=== PATIENT | male | born 1935 | race Caucasian/White ===

== ENCOUNTER → 2016-08-25 | Outpatient (CLI) | payer MEDICARE, BC | LOC: MW.CHPS 08:00 | PROVIDERS: ATTEND Plastic Surgery | DX: L57.0 Actinic keratosis (principal); L82.0 Inflamed seborrheic keratosis | CPT/HCPCS: 17000; 17003; 17110; 99202 ==

== ENCOUNTER → 2016-09-23 | Outpatient (CLI) | payer MEDICARE, BC | LOC: MW.CHIM 08:00 | PROVIDERS: ATTEND Internal Medicine | DX: I48.91 Unspecified atrial fibrillation (principal); I10 Essential (primary) hypertension; I49.3 Ventricular premature depolarization; F41.9 Anxiety disorder, unspecified | CPT/HCPCS: 99214 ==

== ENCOUNTER → 2016-10-06 | Outpatient (CLI) | payer MEDICARE, BC ==
[2016-10-06 12:04] LABS: CHLORIDE,CL 91 mmol/L (98-110); SODIUM,NA 132 mmol/L (136-146)
== END ==
LOC: MW.CHIM 11:21
PROVIDERS: ATTEND Internal Medicine
DX: I10 Essential (primary) hypertension (principal); I48.91 Unspecified atrial fibrillation; I25.10 Atherosclerotic heart disease of native coronary artery without angina pectoris; E03.9 Hypothyroidism, unspecified; E78.5 Hyperlipidemia, unspecified
CPT/HCPCS: 36415; 80053; 80061; 84439; 84443; 85025

== ENCOUNTER → 2016-10-07 | Outpatient (CLI) | payer MEDICARE, BC | LOC: MW.CHIM 08:00 | PROVIDERS: ATTEND Internal Medicine | DX: R07.9 Chest pain, unspecified (principal); I10 Essential (primary) hypertension; E78.5 Hyperlipidemia, unspecified; I49.3 Ventricular premature depolarization; J44.9 Chronic obstructive pulmonary disease, unspecified; F41.9 Anxiety disorder, unspecified; F32.9 Major depressive disorder, single episode, unspecified | CPT/HCPCS: 99214 ==

== ENCOUNTER → 2016-10-26 | Outpatient (CLI) | payer MEDICARE, BC | LOC: MW.CHPS 08:00 | PROVIDERS: ATTEND Plastic Surgery | DX: L57.0 Actinic keratosis (principal) | CPT/HCPCS: G0463 ==

== ENCOUNTER 2017-02-02 12:28 | Observation (INO) | payer MEDICARE, BC ==
[2017-02-02] MEDS ORDERED: Sodium Chloride 0.9% 2.5 ML Syringe FLUSH PRN ×2 (12:33→17:25)
[2017-02-02] MEDS ORDERED: Aspirin 81 MG Tab.Chew PO ONE (12:33)
[2017-02-02] MEDS ORDERED: Sodium Chloride 0.9% 10 ML Syringe FLUSH PRN ×2 (12:33→17:25)
[2017-02-02] MEDS ORDERED: Alum Hydrox/Mag Hydrox/Simeth 15 ML, Metoclopramide 5 MG, Lidocaine 2% 5 ML PO ONE ×3 (12:33)
[2017-02-02] MEDS ORDERED: Famotidine 20 MG/2 ML SDV IVPUSH ONE (12:33)
[2017-02-02] MEDS ORDERED: Sodium Chloride 0.9% 1,000 ML IV ONE ×2 (12:33→15:36)
--- NOTE | 2017-02-02 12:57 | EDM.PDOC ---
ED HPI GENERAL MEDICAL PROBLEM - General Chief Complaint: Chest Pain Time Seen by Provider: 02/02/17 12:47 Source of Information: Reports: Patient History Limitations: Reports: No Limitations - History of Present Illness INITIAL COMMENTS - FREE TEXT/NARRATIVE: HISTORY AND PHYSICAL: []Patient presents to the emergency room today by EMS with family members. Patient reports he has had midsternal chest pain that radiates across the chest up into his neck and into his head. History of Present Illness: [Patient complains of midsternal chest pain that radiates across the chest into his neck and head for the past 2 days. Patient has vague complaints of dizziness , headache, near syncopal events, and frequent falls at home. Patient also reports having nausea and shortness of breath. Both the and daughter are at the bedside stating that he has not been feeling well for the last couple weeks. Patient has a history of past [place] [address] 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 States he was last seen a month ago by Dr. Saldaña and was given a new blood pressure medication due to unmanaged blood pressure. He reports he did have an angiogram done in [place] in October of this year which was normal, which the daughter states "we were surprised due to having major arteries blocked."] During the interview process, patient is frequently closes his eyes and has labored breathing/pursed lip breathing. Patient reports that this helps calm him down. History of atrial fibrillation, RI, lung cancer with lobectomy to the left upper lobe. Past history of smoking, has not smoked in over 40 years. Review of Systems: As per history of present illness and below otherwise all systems reviewed and negative. Past medical history: As per history of present illness and as reviewed below otherwise noncontributory. Surgical history: As per history of present illness and as reviewed below otherwise noncontributory. Social history: No reported history of drug or alcohol abuse. Family history: As per history of present illness and as reviewed below otherwise noncontributory. Physical exam: 81-year-old male nontoxic appearing. Able to speak in full sentences, labored breathing. Answers questions appropriately. HEENT: Atraumatic, normocehpalic, pupils reactive, negative for conjunctival pallor or scleral icterus, mucous membranes moist, throat clear, neck supple, nontender, trachea midline. Lungs: Very diminished to auscultation, unable to auscultate breath sounds to left upper lobe, chest non tender. Heart: Tachycardic, irregular, negative for clicks, rubs, or JVD. EKG shows sinus tachycardia with a regular rate of 116 to 130s with left ventricular hypertrophy. Abdomen: Soft, nondistended, nontender. Negative for masses or hepatossplenmegaly. Negative for costovertebral tenderness. Pelvis: Stable nontender. Genitourinary: Deferred. Rectal: Deferred Extremities: Atraumatic, negative for cords or calf pain. No peripheral edema noted bilaterally Neurovascular unremarkable. Neuro: Awake, alert, oriented. Cranial nerves II through XII unremarkable. Cerebellum unremarkable. Motor and sensory unremarkable throughout. Exam nonfocal. Discussed case with Dr. Pollock who is agreeable for observation on telemetry Diagnostics: [CBC, CMP, troponin, lipase, d-dimer, UA, 1 view chest x-ray, head CT, amylase, EKG] Therapeutics: 324mg chewable aspirin Famotidine IV GI cocktail po ativan IV nitro sublingual oxygen therapy Impression: [#1 confusion #2 tachycardia #3 hypertension] Plan: [Observation Telemetry] Definitive disposition and diagnosis as appropriate pending reevaluation and review of above. Onset: Sudden Duration: Day(s): (2) Location: Reports: Head, Neck, Chest Associated Symptoms: Reports: Confusion, Chest Pain, Headaches, Nausea/Vomiting , Shortness of Breath Middle Chest Pain Score (Numeric/FACES): 4 - Related Data Allergies Allergy/AdvReac Type Severity Reaction Status Date / Time No Known Allergies Allergy Verified 02/13/14 07:57 Home Meds: Home Meds Albuterol [Ventolin HFA] 1 - 2 puff INH ASDIRECTED PRN 07/27/16 [History] Aspirin [Bland Aspirin] 81 mg PO DAILY 07/27/16 [History] Levothyroxine [Synthroid] 50 mcg PO DAILY 07/27/16 [History] Losartan/Hydrochlorothiazide [Losartan-HCTZ 50-12.5 MG] 1 tab PO DAILY 07/27/16 [History] Metoprolol Succinate [Toprol XL] 25 mg PO DAILY 07/27/16 [History] Multivitamin [Multivitamins] 1 tab PO DAILY 07/27/16 [History] Sodium Chloride 0.65% [Smith Nasal Mazama] 1 - 2 spray NASBOTH ASDIRECTED PRN 12/05 [History] Tretinoin/Emollient Base [Tretinoin 0.05% Emollient Crm] 1 applic TOP BEDTIME [History] traZODone HCl [Trazodone HCl] 25 mg PO BEDTIME 07/27/16 [History] Past Medical History Cardiovascular History: Reports: Afib, CAD, High Cholesterol, Hypertension Other Cardiovascular History: recent cardiac consultation in [place]. and pt. agreed there have been no changes Respiratory History: Reports: Asthma, Other (See Below) Other Respiratory History: seasonal asthma Gastrointestinal History: Reports: Other (See Below) Other Gastrointestinal History: occasional heartburn, hx colon cancer Musculoskeletal History: Reports: Arthritis, Fracture Psychiatric History: Reports: Depression Endocrine/Metabolic History: Reports: Hypothyroidism Hematologic History: Reports: Other (See Below) Other Hematologic History: nose bleeds in the past Oncologic (Cancer) History: Reports: Basal Cell Carcinoma, Colon, Lung, Squamous Cell Carcinoma - Past Surgical History HEENT Surgical History: Reports: Cataract Surgery Cardiovascular Surgical History: Reports: Other (See Below) GI Surgical History: Reports: Colonoscopy, Other (See Below) Musculoskeletal Surgical History: Reports: Other (See Below) Dermatological Surgical History: Reports: Skin Biopsy Social & Family History - Family History Family Medical History: Noncontributory - Tobacco Use Smoking Status *Q: Former Smoker Month Tobacco Last Used: quit smoking 40 yrs ago - Recreational Drug Use Recreational Drug Use: No ED ROS GENERAL - Review of Systems Review Of Systems: ROS reveals no pertinent complaints other than HPI. ED EXAM, GENERAL - Physical Exam Exam: See Below (See history of present illness) EKG INTERPRETATION EKG Date: 02/02/17 Time: 12:27 Rhythm: Other (Sinus tachycardia with a regular rate) Comparison: Change From Previous EKG (Review is EKG from 2014 2015 shows sinus rhythm with first-degree AV block) Course - Vital Signs Last Recorded V/S: Last Vital Signs Temp 36.4 C 02/02/17 12:35 Pulse 128 H 02/02/17 12:35 Resp 32 H 02/02/17 12:35 BP 179/95 H 02/02/17 13:24 Pulse Ox 97 02/02/17 12:35 - Orders/Labs/Meds Orders: Active Orders 24 hr Category Date Time Status Cardiac Monitoring [RC] . DIRECTED Care 02/02/17 12:33 Active EKG Documentation Completion [RC] STAT Care 02/02/17 12:33 Active Oxygen Therapy [RC] ASDIRECTED Care 02/02/17 12:33 Active Pulse Oximetry [RC] ASDIRECTED Care 02/02/17 12:33 Active Nitroglycerin [Nitrostat] Med 02/02/17 12:45 Active 0.4 mg SL Q5M Sodium Chloride 0.9% [Saline Flush] Med 02/02/17 12:33 Active 10 ml FLUSH ASDIRECTED PRN Sodium Chloride 0.9% [Saline Flush] Med 02/02/17 12:33 Active 2.5 ml FLUSH ASDIRECTED PRN Saline Lock Insert [OM.PC] Stat Oth 02/02/17 12:33 Ordered Medication Orders Nitroglycerin (Nitrostat) 0.4 mg SL Q5M BRO Last Admin: 02/02/17 13:24 Dose: 0.4 mg Sodium Chloride (Saline Flush) 10 ml FLUSH ASDIRECTED PRN PRN Reason: Keep Vein Open Sodium Chloride (Saline Flush) 2.5 ml FLUSH ASDIRECTED PRN PRN Reason: Keep Vein Open Labs: Laboratory Tests 02/02/17 02/02/17 02/02/17 Range/Units 12:40 12:40 12:40 WBC 5.91 (4.0-11.0) K/uL RBC 4.65 (4.50-5.90) M/uL Hgb 14.7 (13.0-17.0) g/dL Hct 41.1 (38.0-50.0) % MCV 88.4 (80.0-98.0) fL MCH 31.6 (27.0-32.0) pg MCHC 35.8 (31.0-37.0) g/dL RDW Std Deviation 38.2 (28.0-62.0) fl RDW Coeff of Yesi 12 (11.0-15.0) % Plt Count 186 (150-400) K/uL MPV 8.50 (7.40-12.00) fL Neut % (Auto) 62.4 (48.0-80.0) % Lymph % (Auto) 20.0 (16.0-40.0) % [place] % (Auto) 15.1 H (0.0-15.0) % Eos % (Auto) 2.2 (0.0-7.0) % Baso % (Auto) 0.3 (0.0-1.5) % Neut # (Auto) 3.7 (1.4-5.7) K/uL Lymph # (Auto) 1.2 (0.6-2.4) K/uL [place] # (Auto) 0.9 H (0.0-0.8) K/uL Eos # (Auto) 0.1 (0.0-0.7) K/uL Baso # (Auto) 0.0 (0.0-0.1) K/uL INR 1.12 H (0.86-1.11) D-Dimer, Quantitative 0.33 (0.0-0.52) mg/LFEU Sodium 130 L (136-146) mmol/L Potassium 3.5 (3.5-5.1) mmol/L Chloride 90 L (98-110) mmol/L Carbon Dioxide 33 H (21-31) mmol/L BUN 11 (6.0-23.0) mg/dL Creatinine 0.8 (0.6-1.5) mg/dL Est Cr Clr Drug Dosing TNP Estimated GFR (MDRD) > 60.0 ml/min Glucose 95 (60-110) mg/dL Calcium 9.3 (8.8-10.8) mg/dL Total Bilirubin 0.9 (0.1-1.5) mg/dL AST 21 (5-40) IU/L ALT 20 (8-54) IU/L Alkaline Phosphatase 69 (40-150) Troponin I (0.0-0.29) NG/ML Total Protein 6.3 (6.0-8.0) g/dL Albumin 4.0 (3.4-4.8) g/dL Globulin 2.3 (2.0-3.5) g/dL Albumin/Globulin Ratio 1.7 (1.3-2.8) Amylase 63 (10-90) U/L Lipase 57 (7-80) U/L Urine Color Urine Appearance Urine pH (5.0-8.0) Ur Specific [place] (1.001-1.035) Urine Protein (NEGATIVE) mg/dL Urine Glucose (UA) (NEGATIVE) mg/dL Urine Ketones (NEGATIVE) mg/dL Urine Occult Blood (NEGATIVE) Urine Nitrite (NEGATIVE) Urine Bilirubin (NEGATIVE) Urine Urobilinogen (<2.0) EU/dL Ur Leukocyte Esterase (NEGATIVE) Urine RBC (0-2/HPF) Urine WBC (0-5/HPF) Ur Epithelial Cells (NONE-FEW) Urine Bacteria (NEGATIVE) Urine Mucus (NONE-MOD) 02/02/17 02/02/17 Range/Units 12:40 13:55 WBC (4.0-11.0) K/uL RBC (4.50-5.90) M/uL Hgb (13.0-17.0) g/dL Hct (38.0-50.0) % MCV (80.0-98.0) fL MCH (27.0-32.0) pg MCHC (31.0-37.0) g/dL RDW Std Deviation (28.0-62.0) fl RDW Coeff of Yesi (11.0-15.0) % Plt Count (150-400) K/uL MPV (7.40-12.00) fL Neut % (Auto) (48.0-80.0) % Lymph % (Auto) (16.0-40.0) % [place] % (Auto) (0.0-15.0) % Eos % (Auto) (0.0-7.0) % Baso % (Auto) (0.0-1.5) % Neut # (Auto) (1.4-5.7) K/uL Lymph # (Auto) (0.6-2.4) K/uL [place] # (Auto) (0.0-0.8) K/uL Eos # (Auto) (0.0-0.7) K/uL Baso # (Auto) (0.0-0.1) K/uL INR (0.86-1.11) D-Dimer, Quantitative (0.0-0.52) mg/LFEU Sodium (136-146) mmol/L Potassium (3.5-5.1) mmol/L Chloride (98-110) mmol/L Carbon Dioxide (21-31) mmol/L BUN (6.0-23.0) mg/dL Creatinine (0.6-1.5) mg/dL Est Cr Clr Drug Dosing Estimated GFR (MDRD) ml/min Glucose (60-110) mg/dL Calcium (8.8-10.8) mg/dL Total Bilirubin (0.1-1.5) mg/dL AST (5-40) IU/L ALT (8-54) IU/L Alkaline Phosphatase (40-150) Troponin I < 0.10 (0.0-0.29) NG/ML Total Protein (6.0-8.0) g/dL Albumin (3.4-4.8) g/dL Globulin (2.0-3.5) g/dL Albumin/Globulin Ratio (1.3-2.8) Amylase (10-90) U/L Lipase (7-80) U/L Urine Color YELLOW Urine Appearance CLEAR Urine pH 7.0 (5.0-8.0) Ur Specific [place] 1.010 (1.001-1.035) Urine Protein NEGATIVE (NEGATIVE) mg/dL Urine Glucose (UA) NEGATIVE (NEGATIVE) mg/dL Urine Ketones NEGATIVE (NEGATIVE) mg/dL Urine Occult Blood TRACE-INTACT (NEGATIVE) Urine Nitrite NEGATIVE (NEGATIVE) Urine Bilirubin NEGATIVE (NEGATIVE) Urine Urobilinogen 0.2 (<2.0) EU/dL Ur Leukocyte Esterase NEGATIVE (NEGATIVE) Urine RBC 0-2 (0-2/HPF) Urine WBC 0-1 (0-5/HPF) Ur Epithelial Cells RARE (NONE-FEW) Urine Bacteria RARE (NEGATIVE) Urine Mucus LIGHT (NONE-MOD) Meds: Medications Generic Name Dose Route Start Last Admin Trade Name Freq PRN Reason Stop Dose Admin Nitroglycerin 0.4 mg 02/02/17 12:45 02/02/17 13:24 Nitrostat SL 0.4 mg Q5M BRO Administration Sodium Chloride 10 ml 02/02/17 12:33 Saline Flush FLUSH ASDIRECTED PRN Keep Vein Open Sodium Chloride 2.5 ml 02/02/17 12:33 Saline Flush FLUSH ASDIRECTED PRN Keep Vein Open Discontinued Medications Generic Name Dose Route Start Last Admin Trade Name Freq PRN Reason Stop Dose Admin Aspirin 324 mg 02/02/17 12:33 02/02/17 13:00 Aspirin PO 02/02/17 12:34 324 mg ONETIME ONE Administration Al Hydroxide/Mg Hydroxide 15 0 ml 02/02/17 12:33 02/02/17 13:00 ml/ Metoclopramide HCl 5 mg/ PO 02/02/17 12:34 25 each Lidocaine HCl 5 ml ONETIME ONE Administration Famotidine 20 mg 02/02/17 12:33 02/02/17 13:19 Pepcid IVPUSH 02/02/17 12:34 20 mg ONETIME ONE Administration Sodium Chloride 1,000 mls @ 999 mls/hr 02/02/17 12:33 02/02/17 13:26 Normal Saline IV 02/02/17 13:33 999 mls/hr .Bolus ONE Administration Lorazepam 0.5 mg 02/02/17 13:11 02/02/17 13:22 Ativan IVPUSH 02/02/17 13:12 0.5 mg ONETIME ONE Administration Departure - Departure Time of Disposition: 15:23 Disposition: Refer to Observation Condition: Fair Clinical Impression: Confusion, Sinus tachycardia Hypertension Qualifiers: Hypertension type: unspecified Qualified Code(s): I10 - Essential (primary) hypertension Forms: ED Department Discharge - My Orders Last 24 Hours: My Active Orders 02/02/17 12:33 Cardiac Monitoring [RC] . DIRECTED EKG Documentation Completion [RC] STAT Oxygen Therapy [RC] ASDIRECTED Pulse Oximetry [RC] ASDIRECTED Sodium Chloride 0.9% [Saline Flush] 10 ml FLUSH ASDIRECTED PRN Sodium Chloride 0.9% [Saline Flush] 2.5 ml FLUSH ASDIRECTED PRN Saline Lock Insert [OM.PC] Stat 02/02/17 12:45 Nitroglycerin [Nitrostat] 0.4 mg SL Q5M - Assessment/Plan Last 24 Hours: My Active Orders 02/02/17 12:33 Cardiac Monitoring [RC] . DIRECTED EKG Documentation Completion [RC] STAT Oxygen Therapy [RC] ASDIRECTED Pulse Oximetry [RC] ASDIRECTED Sodium Chloride 0.9% [Saline Flush] 10 ml FLUSH ASDIRECTED PRN Sodium Chloride 0.9% [Saline Flush] 2.5 ml FLUSH ASDIRECTED PRN Saline Lock Insert [OM.PC] Stat 02/02/17 12:45 Nitroglycerin [Nitrostat] 0.4 mg SL Q5M
[2017-02-02] MEDS ORDERED: LORazepam 2 MG/ML MDV IVPUSH ONE (13:11)
[2017-02-02 13:20] LABS: CHLORIDE,CL 90 mmol/L (98-110); SODIUM,NA 130 mmol/L (136-146)
--- NOTE | 2017-02-02 13:20 | CR ---
Portable chest There is mild cardiomegaly there is suggestion of a small left effusion. There is apical scarring polanco periorly on the right with no prior films to compare. Vessels are within normal limits. Impression: Left pleural effusion and cardiomegaly, probably part of the spectrum of heart failure w ithout overt edema. Right apical scarring
[2017-02-02] MEDS: Nitroglycerin 0.4 MG Tab.SL SL SCH ×2 (13:24→16:45)
--- NOTE | 2017-02-02 14:30 | CT ---
CT brain scan History pain Computed tomographic sections of the brain were acquired without intravenous contrast demonstrating the ventricles and sulci are moderately prominent compatible with patient's advanced age. There is n o mass edema hemorrhage or space-occupying abnormality. Paranasal sinuses are normally aerated. No b peter lesions of the skull are identified. There is calcification of both vertebral arteries. Impression: No acute intracranial pathology
[2017-02-02] MEDS ORDERED: Nitroglycerin 0.4 MG Tab.SL SL PRN (16:23)
--- NOTE | 2017-02-02 17:39 | PCM.HP ---
<Pat Lynqas Z - Last Filed: 02/02/17 17:30> H&P History of Present Illness - General Date of Service: 02/02/17 Admit Problem/Dx: Admission Diagnosis/Problem Admission Diagnosis/Problem Confusion Source of Information: Patient, Family - History of Present Illness Initial Comments - Free Text/Narative: He 1-year-old gentleman who is presenting secondary to confusion and lightheadedness. History was taken from patient, and daughter. He states that the patient's symptoms have been ongoing for the past couple weeks. She has had multiple falls none of which have been witnessed there is been presumption that possibly he had a syncopal/fainting episode. The reason behind this as the patient cannot recall how he got up from his fall. She does have a past medical history of hypertension he is on multiple medications possibly causing some polypharmacy related issues. She was on trazodone for sleep dysfunction, Lexapro for depression, lisinopril/hydrochlorothiazide for blood pressure, levothyroxine for thyroid dysfunction, as well as Metroprolol for atrial fibrillation rate control. As initially thought that the patient might of had a cardiovascular related issue today as he was complaining of mild chest pain however his troponins were negative. And his primary concern was confusion. The confusion when I saw the patient had resolved and the patient was able to answer appropriately. The patient was alert and oriented and understood where he was at. He does state that the patient over the past couple weeks has had difficulty with ambulation, has started to lose weight, and has had dysfunctional breathing. Patient does have albuterol inhaler which she takes 1-2 times a day however is not requiring any at night. Some hydration standpoint the patient fluid intake has been at par to slightly subpar per family. Onset of Symptoms: Reports: Gradual Middle Chest Pain Score (Numeric/FACES): 4 - Related Data Allergies/Adverse Reactions: Allergies Allergy/AdvReac Type Severity Reaction Status Date / Time No Known Allergies Allergy Verified 02/13/14 07:57 Home Medications: Home Meds Albuterol [Ventolin HFA] 1 - 2 puff INH BID 07/27/16 [History] Aspirin [[place] Aspirin] 81 mg PO DAILY 07/27/16 [History] Levothyroxine [Synthroid] 50 mcg PO DAILY 07/27/16 [History] Losartan/Hydrochlorothiazide [Losartan-HCTZ 50-12.5 MG] 1 tab PO DAILY 07/27/16 [History] Metoprolol Succinate [Toprol XL] 50 mg PO DAILY 07/27/16 [History] Multivitamin [Multivitamins] 1 tab PO DAILY 07/27/16 [History] Sodium Chloride 0.65% [[place] Nasal [place]] 1 - 2 spray NASBOTH ASDIRECTED PRN 12/05 [History] Tretinoin/Emollient Base [Tretinoin 0.05% Emollient Crm] 1 applic TOP BEDTIME PRN 07/27/16 [History] traZODone HCl [Trazodone HCl] 12.5 mg PO BEDTIME 07/27/16 [History] Escitalopram [Lexapro] 10 mg PO DAILY 02/02/17 [History] Past Medical History Cardiovascular History: Reports: Afib, CAD, High Cholesterol, Hypertension Other Cardiovascular History: recent cardiac consultation in [place]. and pt. agreed there have been no changes Respiratory History: Reports: Asthma, Other (See Below) Other Respiratory History: seasonal asthma Gastrointestinal History: Reports: Other (See Below) Other Gastrointestinal History: occasional heartburn, hx colon cancer Musculoskeletal History: Reports: Arthritis, Fracture Psychiatric History: Reports: Depression Other Psychiatric History: daughter reports anxiety at home Endocrine/Metabolic History: Reports: Hypothyroidism Hematologic History: Reports: Other (See Below) Other Hematologic History: nose bleeds in the past Oncologic (Cancer) History: Reports: Basal Cell Carcinoma, Colon, Lung, Squamous Cell Carcinoma - Past Surgical History Head Surgeries/Procedures: Reports: None HEENT Surgical History: Reports: Cataract Surgery Cardiovascular Surgical History: Reports: Other (See Below) GI Surgical History: Reports: Colonoscopy, Other (See Below) Musculoskeletal Surgical History: Reports: Other (See Below) Dermatological Surgical History: Reports: Skin Biopsy Social & Family History - Family History Family Medical History: Noncontributory - Tobacco Use Smoking Status *Q: Former Smoker Used Tobacco, but Quit: No Month Tobacco Last Used: quit smoking 40 yrs ago Second Hand Smoke Exposure: No - Caffeine Use Caffeine Use: Reports: Coffee - Recreational Drug Use Recreational Drug Use: No Drug Use in Last 12 Months: No H&P Review of Systems - Review of Systems: Review Of Systems: ROS reveals no pertinent complaints other than HPI. Exam - Exam Exam: See Below - Vital Signs Vital Signs: Last Vital Signs Temp 36.1 C 02/02/17 16:45 Pulse 121 H 02/02/17 16:45 Resp 16 02/02/17 16:45 BP 110/62 02/02/17 16:45 Pulse Ox 100 02/02/17 16:45 Weight: 77.5 kg - Exam Quality Assessment: Supplemental Oxygen General: Alert, Oriented, Cooperative HEENT: Conjunctiva Clear Neck: Supple, Trachea Midline Lungs: Clear to Auscultation Cardiovascular: Regular Rate GI/Abdominal Exam: Normal Bowel Sounds, Soft, Non-Tender Back Exam: Normal Inspection Extremities: Normal Inspection, Normal Range of Motion, Non-Tender, No Pedal Edema Neuro Extensive - Mental Status: Alert, Oriented x3 Psychiatric: Alert - Patient Data Result Diagrams: 02/02/17 12:40 02/02/17 12:40 *Q Meaningful Use (ADM) - VTE *Q VTE Criteria *Q: - Stroke *Q Stroke Criteria *Q: - AMI *Q AMI Criteria *Q: Problem List Initiated/Reviewed/Updated: Yes Orders Last 24hrs: Active Orders 24 hr Category Date Time Status Patient Status [ADT] Routine ADT 02/02/17 17:12 Active Height and Weight [RC] UPON Care 02/02/17 17:12 Active Intake and Output [RC] QSHIFT Care 02/02/17 17:13 Active Notify Provider Vital Signs [RC] ASDIRECTED Care 02/02/17 17:13 Active Oxygen Therapy [RC] PRN Care 02/02/17 17:12 Active Pulse Oximetry [RC] PRN Care 02/02/17 17:13 Active Up With Assistance [RC] ASDIRECTED Care 02/02/17 17:12 Active VTE/DVT Education [RC] PER UNIT ROUTINE Care 02/02/17 17:12 Active Vital Signs [RC] Q4H Care 02/02/17 17:12 Active PT Evaluation and Treatment [CONS] Routine Cons 02/02/17 17:25 Active Regular Diet [DIET] Diet 02/02/17 Breakfast Active BASIC METABOLIC PANEL,BMP [CHEM] AM Lab 02/03/17 05:11 Ordered CBC WITH AUTO DIFF [HEME] AM Lab 02/03/17 05:11 Ordered Enoxaparin [Lovenox] Med 02/02/17 17:15 Active 40 mg SUBCUT DAILY Nitroglycerin [Nitrostat] Med 02/02/17 16:23 Active 0.4 mg SL Q5M PRN Sodium Chloride 0.9% [Normal Saline] 1,000 ml Med 02/02/17 17:15 Active IV ASDIRECTED Sodium Chloride 0.9% [Saline Flush] Med 02/02/17 17:25 Active 10 ml FLUSH ASDIRECTED PRN Sodium Chloride 0.9% [Saline Flush] Med 02/02/17 17:25 Ordered 2.5 ml FLUSH ASDIRECTED PRN Peripheral IV Insertion Adult [OM.PC] Routine Oth 02/02/17 17:12 Ordered Saline Lock Insert [OM.PC] Routine Oth 02/02/17 17:12 Ordered Resuscitation Status Routine Resus Stat 02/02/17 17:12 Ordered Medication Orders Enoxaparin Sodium (Lovenox) 40 mg SUBCUT DAILY BRO Sodium Chloride (Normal Saline) 1,000 mls @ 100 mls/hr IV ASDIRECTED BRO Nitroglycerin (Nitrostat) 0.4 mg SL Q5M PRN PRN Reason: chest pain Sodium Chloride (Saline Flush) 10 ml FLUSH ASDIRECTED PRN PRN Reason: Keep Vein Open Sodium Chloride (Saline Flush) 2.5 ml FLUSH ASDIRECTED PRN PRN Reason: Keep Vein Open Sodium Chloride (Saline Flush) 10 ml FLUSH ASDIRECTED PRN PRN Reason: Keep Vein Open Sodium Chloride (Saline Flush) 2.5 ml FLUSH ASDIRECTED PRN PRN Reason: Keep Vein Open Assessment/Plan Comment:: Assessment/plan: #1. Confusion/syncopal episodes over the past 2 weeks with possible ambulatory dysfunction -Admit the patient for observation less than 2 midnights -Hold patient's home medication, start the patient on normal saline 100 mL per hour -Physiotherapy consult and evaluation for assessment of ambulation status #2. Hyponatremia mild -Continue to watch the BMP, fluid replacement normal saline #3. Possible polypharmacy induced confusion and syncopal episodes -Hold the patient home medications -Consider possibly DC the patient's trazodone Consultation observation status less than 2 midnights <Aries Pollock - Last Filed: 02/03/17 09:23> H&P History of Present Illness - General Admit Problem/Dx: Admission Diagnosis/Problem Admission Diagnosis/Problem Confusion I performed a history and physical examination of the patient and I have discussed the management with the resident. I have reviewed the residents note and agree with the documented findings and plan of care. Exam - Vital Signs Vital Signs: Last Vital Signs Temp 35.9 C 02/03/17 08:00 Pulse 67 02/03/17 08:21 Resp 22 H 02/03/17 08:00 BP 155/67 H 02/03/17 08:21 Pulse Ox 95 02/03/17 08:00 - Patient Data Lab Results Last 24 hrs: Laboratory Results - last 24 hr 02/03/17 02/03/17 Range/Units 04:17 04:17 WBC 4.71 (4.0-11.0) K/uL RBC 3.95 L (4.50-5.90) M/uL Hgb 12.5 L (13.0-17.0) g/dL Hct 35.7 L (38.0-50.0) % MCV 90.4 (80.0-98.0) fL MCH 31.6 (27.0-32.0) pg MCHC 35.0 (31.0-37.0) g/dL RDW Std Deviation 38.5 (28.0-62.0) fl RDW Coeff of Yesi 12 (11.0-15.0) % Plt Count 165 (150-400) K/uL MPV 8.70 (7.40-12.00) fL Add Manual Diff YES Neutrophils % (Manual) 53 (48.0-80.0) % Lymphocytes % (Manual) 28 (16.0-40.0) % Monocytes % (Manual) 12 (0.0-15.0) % Eosinophils % (Manual) 6 (0.0-7.0) % Basophils % (Manual) 1 (0.0-1.5) % Absolute Seg Neuts 2.5 Lymphocytes # (Manual) 1.3 Monocytes # (Manual) 0.6 Eosinophils # (Manual) 0.3 Basophils # (Manual) 0 Sodium 131 L (136-146) mmol/L Potassium 3.9 (3.5-5.1) mmol/L Chloride 92 L (98-110) mmol/L Carbon Dioxide 36 H (21-31) mmol/L BUN 10 (6.0-23.0) mg/dL Creatinine 0.7 (0.6-1.5) mg/dL Est Cr Clr Drug Dosing 87.65 mL/min Estimated GFR (MDRD) > 60.0 ml/min Glucose 83 (60-110) mg/dL Calcium 8.2 L (8.8-10.8) mg/dL Result Diagrams: 02/03/17 04:17 02/03/17 04:17 *Q Meaningful Use (ADM) - VTE *Q VTE Criteria *Q: - Stroke *Q Stroke Criteria *Q: - AMI *Q AMI Criteria *Q: Orders Last 24hrs: Active Orders 24 hr Category Date Time Status Patient Status [ADT] Routine ADT 02/02/17 17:12 Active Intake and Output [RC] Q12H Care 02/02/17 17:13 Active Notify Provider Vital Signs [RC] ASDIRECTED Care 02/02/17 17:13 Active Oxygen Therapy [RC] PRN Care 02/02/17 17:12 Active Pulse Oximetry [RC] PRN Care 02/02/17 17:13 Active Telemetry Monitoring [Cardiac Monitoring] [RC] . Care 02/02/17 18:50 Active DIRECTED Telemetry Monitoring [Cardiac Monitoring] [RC] Q8H Care 02/02/17 15:32 Active Up With Assistance [RC] ASDIRECTED Care 02/02/17 17:12 Active VTE/DVT Education [RC] PER UNIT ROUTINE Care 02/02/17 17:12 Active Vital Signs [RC] Q4H Care 02/02/17 17:12 Active PT Evaluation and Treatment [CONS] Routine Cons 02/02/17 17:25 Active Enoxaparin [Lovenox] Med 02/02/17 17:15 Active 40 mg SUBCUT DAILY Metoprolol Tartrate [Lopressor] Med 02/02/17 21:00 Active 25 mg PO Q12HR Metoprolol Tartrate [Lopressor] Med 02/02/17 18:57 Active 5 mg IVPUSH Q5M PRN Nitroglycerin [Nitrostat] Med 02/02/17 16:23 Active 0.4 mg SL Q5M PRN Sodium Chloride 0.9% [Saline Flush] Med 02/02/17 17:25 Active 10 ml FLUSH ASDIRECTED PRN Sodium Chloride 0.9% [Saline Flush] Med 02/02/17 17:25 Active 2.5 ml FLUSH ASDIRECTED PRN Peripheral IV Insertion Adult [OM.PC] Routine Oth 02/02/17 17:12 Ordered Saline Lock Insert [OM.PC] Routine Oth 02/02/17 17:12 Ordered Resuscitation Status Routine Resus Stat 02/02/17 17:12 Ordered Medication Orders Enoxaparin Sodium (Lovenox) 40 mg SUBCUT DAILY [facility] Last Admin: 02/03/17 08:36 Dose: 40 mg Admin: 02/02/17 17:43 Dose: 40 mg Metoprolol Tartrate (Lopressor) 25 mg PO Q12HR BRO Last Admin: 02/03/17 08:21 Dose: 25 mg Admin: 02/02/17 20:44 Dose: 25 mg Metoprolol Tartrate (Lopressor) 5 mg IVPUSH Q5M PRN PRN Reason: Arrhythmia Nitroglycerin (Nitrostat) 0.4 mg SL Q5M PRN PRN Reason: chest pain Sodium Chloride (Saline Flush) 10 ml FLUSH ASDIRECTED PRN PRN Reason: Keep Vein Open Sodium Chloride (Saline Flush) 2.5 ml FLUSH ASDIRECTED PRN PRN Reason: Keep Vein Open Sodium Chloride (Saline Flush) 10 ml FLUSH ASDIRECTED PRN PRN Reason: Keep Vein Open Sodium Chloride (Saline Flush) 2.5 ml FLUSH ASDIRECTED PRN PRN Reason: Keep Vein Open
[2017-02-02] MEDS: Sodium Chloride 0.9% 1,000 ML IV SCH (17:43)
[2017-02-02] MEDS: Enoxaparin 40 MG/0.4 ML Syringe SUBCUT SCH (17:43)
[2017-02-02] MEDS ORDERED: Metoprolol Tartrate 5 MG/5 ML SDV IVPUSH PRN ×2 (18:50→18:57)
[2017-02-02] MEDS ORDERED: Metoprolol Tartrate 5 MG in Sodium Chloride 0.9% 50 ML IV ONE (18:54)
[2017-02-02] MEDS: Metoprolol Tartrate 25 MG Tab PO SCH (20:44)
[2017-02-03] MEDS: Sodium Chloride 0.9% 1,000 ML IV SCH (03:23)
[2017-02-03 05:15] LABS: CHLORIDE,CL 92 mmol/L (98-110); SODIUM,NA 131 mmol/L (136-146)
[2017-02-03] MEDS: Metoprolol Tartrate 25 MG Tab PO SCH (08:21)
[2017-02-03] MEDS: Enoxaparin 40 MG/0.4 ML Syringe SUBCUT SCH (08:36)
[2017-02-03 11:20] VITALS: BP 174/72
--- NOTE | 2017-02-03 12:18 | PCM.DCSUM1 ---
<Jose L Lny Z - Last Filed: 02/03/17 12:12> Discharge Summary - Hospital Course Free Text/Narrative:: Discharge Summary Date of admission: 02/02/2017 Date of discharge: 02/03/2017 Admitting diagnosis: #1. Confusion/syncopal episodes over the past 2 weeks possible ambulatory dysfunction #2. Hyponatremia mild #3. Possible polypharmacy induced confusion/syncopal episodes #4. Urinary incontinence #5. Discharge diagnoses: #1. Polypharmacy induced confusion/syncopal episode discontinued trazodone #2. Ambulatory dysfunction #3. Mild hyponatremia #4. Gross hematuria without clot formation asymptomatic #5. Urinary incontinence Consultations: None Procedures: None Hospitalization course: Patient was admitted overnight for observation secondary to acute confusion syncopal episodes he was rate controlled with IV metoprolol 5 mg every 5 minutes when necessary if he became symptomatic for his atrial fibrillation along with short acting metoprolol 25 mg twice a day. Patient did not have any symptomatic it fibrillation and was well controlled from a rate standpoint. Patient did not have any further syncopal episodes while inpatient. Physical therapy assessed the patient and after ambulation and felt that he would benefit from outpatient physical therapy sessions along with a walking cane. Patient's hyponatremia is still mild slightly improved but asymptomatic. Patient did have one episode of gross hematuria without clot formation that was observed on his depends. After discussion with Dr. Pollock, who suggested that this should be worked up outpatient by the patient's PCP for further workup, and decided not to do a CT urogram on the patient. Patient was stable, not hypoxic, able to take good by mouth without any nausea vomiting diarrhea or constipation. Disposition on discharge: Home Condition on discharge: Patient was stable, not hypoxic, able to take good by mouth without any nausea vomiting diarrhea or constipation. Afebrile Discharge medications: Continuation of home medication with trazodone discontinued Follow-up instructions: He should follow up with primary care physician in the next 2 days, as well as follow-up with physical therapy outpatient setting. - Discharge Data Discharge Date: 02/03/17 Discharge Disposition: Home, Self-Care 01 Condition: Good - Patient Summary/Data Consults: Consultations 02/02/17 17:25 PT Evaluation and Treatment [CONS] Routine - Patient Instructions Diet: Heart Healthy Diet Activity: As Tolerated, Rest and Relax Today Driving: Do Not Drive Showering/Bathing: May Shower Wound/Incision Care: Keep Operative Site/Wound Site Clean and Dry Notify Provider of: Fever, Increased Pain, Swelling and Redness, Drainage, Nausea and/or Vomiting - Discharge Plan Prescriptions/Med Rec: Omeprazole Magnesium [Prilosec Otc] 40 mg PO DAILY #30 tablet. Home Medications: Home Meds Albuterol [Ventolin HFA] 1 - 2 puff INH BID 07/27/16 [History] Aspirin [[place] Aspirin] 81 mg PO DAILY 07/27/16 [History] Levothyroxine [Synthroid] 50 mcg PO DAILY 07/27/16 [History] Losartan/Hydrochlorothiazide [Losartan-HCTZ 50-12.5 MG] 1 tab PO DAILY 07/27/16 [History] Metoprolol Succinate [Toprol XL] 50 mg PO DAILY 07/27/16 [History] Multivitamin [Multivitamins] 1 tab PO DAILY 07/27/16 [History] Sodium Chloride 0.65% [[place] Nasal [place]] 1 - 2 spray NASBOTH ASDIRECTED PRN 12/05 [History] Tretinoin/Emollient Base [Tretinoin 0.05% Emollient Crm] 1 applic TOP BEDTIME PRN 07/27/16 [History] Escitalopram [Lexapro] 10 mg PO DAILY 02/02/17 [History] Omeprazole Magnesium [Prilosec Otc] 40 mg PO DAILY #30 tablet. 02/03/17 [Rx] Patient Handouts: Confusion Referrals: Haroon Gaytan MD [Physician] - 02/09/17 10:30 am - Discharge Summary/Plan Comment DC Time >30 min.: No - Patient Data Vitals - Most Recent: Last Vital Signs Temp 36.1 C 02/03/17 11:19 Pulse 61 02/03/17 11:19 Resp 22 H 02/03/17 11:19 BP 174/72 H 02/03/17 11:19 Pulse Ox 97 02/03/17 11:19 Weight - Most Recent: 77.5 kg I&O - Last 24 hours: Intake & Output 02/02/17 02/03/17 02/03/17 22:59 06:59 14:59 Intake Total 1457 550 Output Total 525 Balance 932 550 Lab Results - Last 24 hrs: Laboratory Results - last 24 hr 02/03/17 02/03/17 Range/Units 04:17 04:17 WBC 4.71 (4.0-11.0) K/uL RBC 3.95 L (4.50-5.90) M/uL Hgb 12.5 L (13.0-17.0) g/dL Hct 35.7 L (38.0-50.0) % MCV 90.4 (80.0-98.0) fL MCH 31.6 (27.0-32.0) pg MCHC 35.0 (31.0-37.0) g/dL RDW Std Deviation 38.5 (28.0-62.0) fl RDW Coeff of Yesi 12 (11.0-15.0) % Plt Count 165 (150-400) K/uL MPV 8.70 (7.40-12.00) fL Add Manual Diff YES Neutrophils % (Manual) 53 (48.0-80.0) % Lymphocytes % (Manual) 28 (16.0-40.0) % Monocytes % (Manual) 12 (0.0-15.0) % Eosinophils % (Manual) 6 (0.0-7.0) % Basophils % (Manual) 1 (0.0-1.5) % Absolute Seg Neuts 2.5 Lymphocytes # (Manual) 1.3 Monocytes # (Manual) 0.6 Eosinophils # (Manual) 0.3 Basophils # (Manual) 0 Sodium 131 L (136-146) mmol/L Potassium 3.9 (3.5-5.1) mmol/L Chloride 92 L (98-110) mmol/L Carbon Dioxide 36 H (21-31) mmol/L BUN 10 (6.0-23.0) mg/dL Creatinine 0.7 (0.6-1.5) mg/dL Est Cr Clr Drug Dosing 87.65 mL/min Estimated GFR (MDRD) > 60.0 ml/min Glucose 83 (60-110) mg/dL Calcium 8.2 L (8.8-10.8) mg/dL Med Orders - Current: Current Medications Enoxaparin Sodium (Lovenox) 40 mg SUBCUT DAILY BRO Last Admin: 02/03/17 08:36 Dose: 40 mg Metoprolol Tartrate (Lopressor) 25 mg PO Q12HR ON LICENSE OF [facility] Last Admin: 02/03/17 08:21 Dose: 25 mg Metoprolol Tartrate (Lopressor) 5 mg IVPUSH Q5M PRN PRN Reason: Arrhythmia Nitroglycerin (Nitrostat) 0.4 mg SL Q5M PRN PRN Reason: chest pain Sodium Chloride (Saline Flush) 10 ml FLUSH ASDIRECTED PRN PRN Reason: Keep Vein Open Sodium Chloride (Saline Flush) 2.5 ml FLUSH ASDIRECTED PRN PRN Reason: Keep Vein Open Sodium Chloride (Saline Flush) 10 ml FLUSH ASDIRECTED PRN PRN Reason: Keep Vein Open Sodium Chloride (Saline Flush) 2.5 ml FLUSH ASDIRECTED PRN PRN Reason: Keep Vein Open Discontinued Medications Aspirin (Aspirin) 324 mg PO ONETIME ONE Stop: 02/02/17 12:34 Last Admin: 02/02/17 13:00 Dose: 324 mg Al Hydroxide/Mg Hydroxide 15 ml/ Metoclopramide HCl 5 mg/Lidocaine HCl 5 ml 0 ml PO ONETIME ONE Stop: 02/02/17 12:34 Last Admin: 02/02/17 13:00 Dose: 25 each Famotidine (Pepcid) 20 mg IVPUSH ONETIME ONE Stop: 02/02/17 12:34 Last Admin: 02/02/17 13:19 Dose: 20 mg Sodium Chloride (Normal Saline) 1,000 mls @ 999 mls/hr IV .Bolus ONE Stop: 02/02/17 13:33 Last Admin: 02/02/17 13:26 Dose: 999 mls/hr Sodium Chloride (Normal Saline) 1,000 mls @ 999 mls/hr IV STAT ONE Stop: 02/02/17 16:36 Last Admin: 02/02/17 17:42 Dose: Not Given Sodium Chloride (Normal Saline) 1,000 mls @ 100 mls/hr IV ASDIRECTED ON LICENSE OF [facility] Last Admin: 02/03/17 03:23 Dose: 100 mls/hr Metoprolol Tartrate 5 mg/ (Sodium Chloride) 55 mls @ 100 mls/hr IV ONETIME ONE Stop: 02/02/17 19:26 Last Admin: 02/02/17 20:29 Dose: Not Given Lorazepam (Ativan) 0.5 mg IVPUSH ONETIME ONE Stop: 02/02/17 13:12 Last Admin: 02/02/17 13:22 Dose: 0.5 mg Metoprolol Tartrate (Lopressor) 5 mg IVPUSH Q4H PRN PRN Reason: Arrhythmia Nitroglycerin (Nitrostat) 0.4 mg SL Q5M ON LICENSE OF [facility] Last Admin: 02/02/17 16:45 Dose: Not Given *Q Meaningful Use (DIS) - VTE *Q VTE Criteria *Q: - Stroke *Q Stroke Criteria *Q: - AMI *Q AMI Criteria *Q: <Aries Pollock - Last Filed: 02/05/17 12:42> Discharge Summary - Hospital Course HPI Initial Comments: I was present with the resident during history and examination. I discussed the case with the resident and agree with the findings and plan as documented in the residents note. - Patient Summary/Data Consults: Consultations 02/02/17 17:25 PT Evaluation and Treatment [CONS] Routine - Patient Data Vitals - Most Recent: Last Vital Signs Temp 36.1 C 02/03/17 11:19 Pulse 61 02/03/17 11:19 Resp 22 H 02/03/17 11:19 BP 174/72 H 02/03/17 11:19 Pulse Ox 97 02/03/17 11:19 Med Orders - Current: Current Medications Discontinued Medications Aspirin (Aspirin) 324 mg PO ONETIME ONE Stop: 02/02/17 12:34 Last Admin: 02/02/17 13:00 Dose: 324 mg Al Hydroxide/Mg Hydroxide 15 ml/ Metoclopramide HCl 5 mg/Lidocaine HCl 5 ml 0 ml PO ONETIME ONE Stop: 02/02/17 12:34 Last Admin: 02/02/17 13:00 Dose: 25 each Enoxaparin Sodium (Lovenox) 40 mg SUBCUT DAILY ON LICENSE OF [facility] Last Admin: 02/03/17 08:36 Dose: 40 mg Famotidine (Pepcid) 20 mg IVPUSH ONETIME ONE Stop: 02/02/17 12:34 Last Admin: 02/02/17 13:19 Dose: 20 mg Sodium Chloride (Normal Saline) 1,000 mls @ 999 mls/hr IV .Bolus ONE Stop: 02/02/17 13:33 Last Admin: 02/02/17 13:26 Dose: 999 mls/hr Sodium Chloride (Normal Saline) 1,000 mls @ 999 mls/hr IV STAT ONE Stop: 02/02/17 16:36 Last Admin: 02/02/17 17:42 Dose: Not Given Sodium Chloride (Normal Saline) 1,000 mls @ 100 mls/hr IV ASDIRECTED ON LICENSE OF [facility] Last Admin: 02/03/17 03:23 Dose: 100 mls/hr Metoprolol Tartrate 5 mg/ (Sodium Chloride) 55 mls @ 100 mls/hr IV ONETIME ONE Stop: 02/02/17 19:26 Last Admin: 02/02/17 20:29 Dose: Not Given Lorazepam (Ativan) 0.5 mg IVPUSH ONETIME ONE Stop: 02/02/17 13:12 Last Admin: 02/02/17 13:22 Dose: 0.5 mg Metoprolol Tartrate (Lopressor) 5 mg IVPUSH Q4H PRN PRN Reason: Arrhythmia Metoprolol Tartrate (Lopressor) 25 mg PO Q12HR ON LICENSE OF [facility] Last Admin: 02/03/17 08:21 Dose: 25 mg Metoprolol Tartrate (Lopressor) 5 mg IVPUSH Q5M PRN PRN Reason: Arrhythmia Nitroglycerin (Nitrostat) 0.4 mg SL Q5M ON LICENSE OF [facility] Last Admin: 02/02/17 16:45 Dose: Not Given Nitroglycerin (Nitrostat) 0.4 mg SL Q5M PRN PRN Reason: chest pain Sodium Chloride (Saline Flush) 10 ml FLUSH ASDIRECTED PRN PRN Reason: Keep Vein Open Sodium Chloride (Saline Flush) 2.5 ml FLUSH ASDIRECTED PRN PRN Reason: Keep Vein Open Sodium Chloride (Saline Flush) 10 ml FLUSH ASDIRECTED PRN PRN Reason: Keep Vein Open Sodium Chloride (Saline Flush) 2.5 ml FLUSH ASDIRECTED PRN PRN Reason: Keep Vein Open *Q Meaningful Use (DIS) - VTE *Q VTE Criteria *Q: - Stroke *Q Stroke Criteria *Q: - AMI *Q AMI Criteria *Q:
--- NOTE | 2017-02-03 18:26 | CONS ---
DATE OF CONSULTATION: DATE OF : 1935 PRIMARY CARE PHYSICIAN: None PCP REASON FOR CONSULTATION: Chest pain. HISTORY OF PRESENT ILLNESS: This is an 81-year-old male with a history of hypertension, hypothyroidism, chronic dizziness, insomnia, history of colon cancer, lung cancer, CAD, and history [place], who is here in the hospital and tells me that the main reason is chest pain and shortness of breath. He stated that he started having some chest heaviness across the chest wall with no radiation a little while after he finished eating. It lasted for few hours and also with some shortness of breath. He felt that he did not get enough air and chest pain that is why he called 911 to come to the emergency room. He rated the pain as crushing pain 7 on a 10 pain scale, and also, he was noted to be confused as well. While he was in the emergency room in the hospital, his confusion has been improved actually and it has been determined that it could be related to trazodone that he has been using for sleeping. He is using it every other day, only half a tablet of 50 mg and this has been discontinued. While he was in the hospital, he also was found to have a gross hematuria. Urinalysis did not show any evidence of UTI. However, it showed a large amount of bright blood cell. Per his daughter, he has lost some weight as well as his appetite as well and he has fallen twice in the past 2 months. It seemed to be there is no fracture. Currently, he is going to be discharged today very soon and troponin has been negative. EKG seem to be no changes. Head CT also was done and there was no acute intracranial hemorrhage or acute intracranial pathology. PAST MEDICAL HISTORY: Includes hypertension, hypothyroidism, chronic dizziness, colon cancer, lung cancer, status post lobectomy, history of PVCs, and history of atrial fibrillation as well. MEDICATIONS: Includes metoprolol 50 mg once a day, hydrochlorothiazide/losartan 12.5/50 one tablet once a day as well as the trazodone 25 mg at bedtime as needed and also Cozaar 50 mg once as well, and aspirin 81 once a day. He is also taking Ventolin as well as Anoro Ellipta inhalers. PHYSICAL EXAMINATION: VITAL SIGNS: Blood pressure is elevated at 160 to 170, heart rate of 61, temperature 36.1, O2 saturation 97 on room air. HEENT: No pallor. No jaundice. No JVD. Heart normal S1, S2. No murmur. Regular rate and rhythm. LUNGS: Clear. No wheezing. ABDOMEN: Soft, nontender. Bowel sounds present. No hepatosplenomegaly. EXTREMITIES: Legs, no edema. LAB INVESTIGATIONS: CBC showed WBC of 4, hematocrit of 35, hemoglobin of 12, and platelet is 165. D - dimer is negative. Sodium 131, potassium 3.9, chloride 92, bicarb 36, BUN 10, creatinine 0.7. Troponin is negative. Urinalysis showed WBC is 0 to 1. There is occult blood positive in his urine. ASSESSMENT/PLAN: This is an 81-year-old male with history of chronic dizziness, frequent PVC, as well as hypertension, hypothyroidism, insomnia, anxiety, history of lung cancer status post lobectomy, nonsignificant coronary artery disease, colon cancer who presented to the hospital with chest pain as well as well as shortness of breath, history of chronic obstructive pulmonary disease and also gross hematuria. I would recommend to have a PFT done as an outpatient as well as I suspected that his chest pain with shortness of breath could be related to reflux disease. I would give him a trial of a PPI and see what happens. I am also going to do a swallowing test as well, and regarding his gross hematuria, with a weight loss and loss of appetite, he should be worked up for a possible blocked bladder cancer as an outpatient. His blood pressure was elevated in the hospital and we will see him as an outpatient as well for a blood pressure control. FLORENTINO / CRUZ /[id number] MTDPiper
== END 2017-02-03 13:48 | disposition home or self-care (01) ==
LOC: MW.ED 12:28 → MW.MS 15:24
PROVIDERS: ADMIT Internal Medicine; ATTEND Internal Medicine
DX: R41.0 Disorientation, unspecified (principal); T50.995A Adverse effect of other drugs, medicaments and biological substances, initial encounter; R26.9 Unspecified abnormalities of gait and mobility; E87.1 Hypo-osmolality and hyponatremia; R31.0 Gross hematuria; R32 Unspecified urinary incontinence; I48.91 Unspecified atrial fibrillation; I25.10 Atherosclerotic heart disease of native coronary artery without angina pectoris; I25.2 Old myocardial infarction; I10 Essential (primary) hypertension; E78.00 Pure hypercholesterolemia, unspecified; J45.909 Unspecified asthma, uncomplicated; M19.90 Unspecified osteoarthritis, unspecified site; F32.9 Major depressive disorder, single episode, unspecified; E03.9 Hypothyroidism, unspecified; Z79.82 Long term (current) use of aspirin; Z79.899 Other long term (current) drug therapy; Z85.038 Personal history of other malignant neoplasm of large intestine; Z85.118 Personal history of other malignant neoplasm of bronchus and lung; Z87.891 Personal history of nicotine dependence; Z90.2 Acquired absence of lung [part of]; Z98.890 Other specified postprocedural states
CPT/HCPCS: 36415; 70450; 71010; 80048; 80053; 81001; 82150; 83690; 83735; 84484; 85025; 85379; 85610; 93005; 96361; 96372; 96374; 96375; 97161; 99285; A9270; G0378; J1650; J2060; J7040; 99284

== ENCOUNTER 2017-02-21 21:54 | Inpatient (IN) | payer MEDICARE, BC ==
--- NOTE | 2017-02-21 21:59 | EDM.PDOC ---
ED HPI GENERAL MEDICAL PROBLEM - General Stated Complaint: HARD TIME BREATHING Time Seen by Provider: 02/21/17 21:56 - History of Present Illness INITIAL COMMENTS - FREE TEXT/NARRATIVE: HISTORY AND PHYSICAL: History of present illness: Patient is an 81-year-old white male history of obstructive lung disease sensory concern of shortness of breath he's had this over the last 2 days he denies chest pain nausea vomiting fever chills or other complaints Review of systems: As per history of present illness and below otherwise all systems reviewed and negative. Past medical history: As per history of present illness and as reviewed below otherwise noncontributory. Surgical history: As per history of present illness and as reviewed below otherwise noncontributory. Social history: No reported history of drug or alcohol abuse. Family history: As per history of present illness and as reviewed below otherwise noncontributory. Physical exam: HEENT: Atraumatic, normocephalic, pupils reactive, negative for conjunctival pallor or scleral icterus, mucous membranes moist, throat clear, neck supple, nontender, trachea midline. Lungs: Slightly coarse bilaterally diminished, breath sounds equal bilaterally, chest nontender. Heart: S1S2, regular, negative for clicks, rubs, or JVD. Abdomen: Soft, nondistended, nontender. Negative for masses or hepatosplenomegaly. Negative for costovertebral tenderness. Pelvis: Stable nontender. Genitourinary: Deferred. Rectal: Deferred. Extremities: Atraumatic, negative for cords or calf pain. Neurovascular unremarkable. Neuro: Awake, alert, follows commands moves all extremities limited but grossly nonfocal exam Diagnostics: CBC CMP BNP PT/INR troponin chest x-ray EKG Therapeutics: IV O2 monitor albuterol ipratropium nebulizer Impression: #1 dyspnea #2 history of obstructive lung disease Definitive disposition and diagnosis as appropriate pending reevaluation and review of above. - Related Data Allergies Allergy/AdvReac Type Severity Reaction Status Date / Time No Known Allergies Allergy Verified 02/21/17 22:14 Home Meds: Home Meds Albuterol [Ventolin HFA] 1 - 2 puff INH BID 07/27/16 [History] Levothyroxine [Synthroid] 50 mcg PO DAILY 07/27/16 [History] Metoprolol Succinate [Toprol XL] 50 mg PO DAILY 07/27/16 [History] LORazepam 0 mg PO DAILY 02/21/17 [History] Losartan Potassium 50 mg PO DAILY 02/21/17 [History] PARoxetine [Paxil] 10 mg PO DAILY 02/21/17 [History] Umeclidinium Brm/Vilanterol Tr [Anoro Ellipta 62.5-25 MCG] 1 puff INH DAILY 09/04 [History] Past Medical History Cardiovascular History: Reports: Afib, CAD, High Cholesterol, Hypertension Other Cardiovascular History: recent cardiac consultation in [place]. and pt. agreed there have been no changes Respiratory History: Reports: Asthma, Other (See Below) Other Respiratory History: seasonal asthma Gastrointestinal History: Reports: Other (See Below) Other Gastrointestinal History: occasional heartburn, hx colon cancer Musculoskeletal History: Reports: Arthritis, Fracture Psychiatric History: Reports: Depression Other Psychiatric History: daughter reports anxiety at home Endocrine/Metabolic History: Reports: Hypothyroidism Hematologic History: Reports: Other (See Below) Other Hematologic History: nose bleeds in the past Oncologic (Cancer) History: Reports: Basal Cell Carcinoma, Colon, Lung, Squamous Cell Carcinoma - Past Surgical History Head Surgeries/Procedures: Reports: None HEENT Surgical History: Reports: Cataract Surgery Cardiovascular Surgical History: Reports: Other (See Below) GI Surgical History: Reports: Colonoscopy, Other (See Below) Musculoskeletal Surgical History: Reports: Other (See Below) Dermatological Surgical History: Reports: Skin Biopsy Social & Family History - Family History Family Medical History: Noncontributory - Tobacco Use Smoking Status *Q: Former Smoker Used Tobacco, but Quit: No Month Tobacco Last Used: quit smoking 40 yrs ago Second Hand Smoke Exposure: No - Caffeine Use Caffeine Use: Reports: Coffee - Recreational Drug Use Recreational Drug Use: No Drug Use in Last 12 Months: No ED ROS GENERAL - Review of Systems Review Of Systems: ROS reveals no pertinent complaints other than HPI. ED EXAM, GENERAL - Physical Exam Exam: See Below (See dictation) Course - Vital Signs Last Recorded V/S: Last Vital Signs Temp 36.0 C 02/21/17 22:03 Pulse 71 02/21/17 22:20 Resp 20 02/21/17 22:20 BP 148/67 H 02/21/17 22:20 Pulse Ox 98 02/21/17 22:20 - Orders/Labs/Meds Orders: Active Orders 24 hr Category Date Time Status EKG Documentation Completion [RC] STAT Care 02/21/17 22:01 Active RT Aerosol Therapy [RC] ASDIRECTED Care 02/21/17 22:01 Active Chest 1V Frontal [CR] Stat Exams 02/21/17 22:01 Taken CKMB [CHEM] Stat Lab 02/21/17 22:11 Results COMPREHENSIVE METABOLIC PN,CMP [CHEM] Stat Lab 02/21/17 22:11 Results Labs: Laboratory Tests 02/21/17 02/21/17 02/21/17 Range/Units 22:11 22:11 22:11 WBC 6.26 (4.0-11.0) K/uL RBC 4.81 (4.50-5.90) M/uL Hgb 15.3 (13.0-17.0) g/dL Hct 42.0 (38.0-50.0) % MCV 87.3 (80.0-98.0) fL MCH 31.8 (27.0-32.0) pg MCHC 36.4 (31.0-37.0) g/dL RDW Std Deviation 40.1 (28.0-62.0) fl RDW Coeff of Yesi 13 (11.0-15.0) % Plt Count 174 (150-400) K/uL MPV 8.70 (7.40-12.00) fL Neut % (Auto) 68.4 (48.0-80.0) % Lymph % (Auto) 18.7 (16.0-40.0) % [place] % (Auto) 11.5 (0.0-15.0) % Eos % (Auto) 1.1 (0.0-7.0) % Baso % (Auto) 0.3 (0.0-1.5) % Neut # (Auto) 4.3 (1.4-5.7) K/uL Lymph # (Auto) 1.2 (0.6-2.4) K/uL [place] # (Auto) 0.7 (0.0-0.8) K/uL Eos # (Auto) 0.1 (0.0-0.7) K/uL Baso # (Auto) 0.0 (0.0-0.1) K/uL Nucleated RBC % 0.0 /100WBC Nucleated RBCs # 0 K/uL Sodium 129 L (136-146) mmol/L Potassium 3.5 (3.5-5.1) mmol/L Chloride 88 L (98-110) mmol/L Carbon Dioxide 28 (21-31) mmol/L BUN 9 (6.0-23.0) mg/dL Creatinine 0.7 (0.6-1.5) mg/dL Est Cr Clr Drug Dosing 85.16 mL/min Estimated GFR (MDRD) > 60.0 ml/min Glucose 108 (60-110) mg/dL Calcium 9.4 (8.8-10.8) mg/dL Total Bilirubin 1.5 (0.1-1.5) mg/dL AST 23 (5-40) IU/L ALT 18 (8-54) IU/L Alkaline Phosphatase 67 (40-150) Troponin I < 0.10 (0.0-0.29) NG/ML B-Natriuretic Peptide (<100) PG/ML Total Protein 6.8 (6.0-8.0) g/dL Albumin 4.1 (3.4-4.8) g/dL Globulin 2.7 (2.0-3.5) g/dL Albumin/Globulin Ratio 1.5 (1.3-2.8) 02/21/17 Range/Units 22:11 WBC (4.0-11.0) K/uL RBC (4.50-5.90) M/uL Hgb (13.0-17.0) g/dL Hct (38.0-50.0) % MCV (80.0-98.0) fL MCH (27.0-32.0) pg MCHC (31.0-37.0) g/dL RDW Std Deviation (28.0-62.0) fl RDW Coeff of Yesi (11.0-15.0) % Plt Count (150-400) K/uL MPV (7.40-12.00) fL Neut % (Auto) (48.0-80.0) % Lymph % (Auto) (16.0-40.0) % [place] % (Auto) (0.0-15.0) % Eos % (Auto) (0.0-7.0) % Baso % (Auto) (0.0-1.5) % Neut # (Auto) (1.4-5.7) K/uL Lymph # (Auto) (0.6-2.4) K/uL [place] # (Auto) (0.0-0.8) K/uL Eos # (Auto) (0.0-0.7) K/uL Baso # (Auto) (0.0-0.1) K/uL Nucleated RBC % /100WBC Nucleated RBCs # K/uL Sodium (136-146) mmol/L Potassium (3.5-5.1) mmol/L Chloride (98-110) mmol/L Carbon Dioxide (21-31) mmol/L BUN (6.0-23.0) mg/dL Creatinine (0.6-1.5) mg/dL Est Cr Clr Drug Dosing mL/min Estimated GFR (MDRD) ml/min Glucose (60-110) mg/dL Calcium (8.8-10.8) mg/dL Total Bilirubin (0.1-1.5) mg/dL AST (5-40) IU/L ALT (8-54) IU/L Alkaline Phosphatase (40-150) Troponin I (0.0-0.29) NG/ML B-Natriuretic Peptide 585 H (<100) PG/ML Total Protein (6.0-8.0) g/dL Albumin (3.4-4.8) g/dL Globulin (2.0-3.5) g/dL Albumin/Globulin Ratio (1.3-2.8) Meds: Medications Discontinued Medications Generic Name Dose Route Start Last Admin Trade Name Freq PRN Reason Stop Dose Admin Albuterol/Ipratropium 3 ml 02/21/17 22:01 02/21/17 22:14 Duoneb 3.0-0.5 Mg/3 Ml NEB 02/21/17 22:02 3 ml ONETIME ONE Administration Departure - Departure Time of Disposition: 22:55 Disposition: Refer to Observation Condition: Good Clinical Impression: Dyspnea, Obstructive lung disease, Hyponatremia, CHF (congestive heart failure) - Discharge Information - My Orders Last 24 Hours: My Active Orders 02/21/17 22:01 EKG Documentation Completion [RC] STAT RT Aerosol Therapy [RC] ASDIRECTED Chest 1V Frontal [CR] Stat 02/21/17 22:11 CKMB [CHEM] Stat COMPREHENSIVE METABOLIC PN,CMP [CHEM] Stat - Assessment/Plan Last 24 Hours: My Active Orders 02/21/17 22:01 EKG Documentation Completion [RC] STAT RT Aerosol Therapy [RC] ASDIRECTED Chest 1V Frontal [CR] Stat 02/21/17 22:11 CKMB [CHEM] Stat COMPREHENSIVE METABOLIC PN,CMP [CHEM] Stat
[2017-02-21] MEDS ORDERED: Albuterol/Ipratropium 3.0-0.5 MG/3 ML Neb Soln NEB ONE (22:01)
[2017-02-21 22:42] LABS: CHLORIDE,CL 88 mmol/L (98-110); SODIUM,NA 129 mmol/L (136-146)
[2017-02-21] MEDS ORDERED: Furosemide 20 MG/2 ML VIAL IVPUSH ONE (22:55)
[2017-02-21] MEDS ORDERED: Albuterol/Ipratropium 3.0-0.5 MG/3 ML Neb Soln NEB PRN (23:50)
[2017-02-22 06:24] LABS: CHLORIDE,CL 88 mmol/L (98-110); SODIUM,NA 130 mmol/L (136-146)
[2017-02-22] MEDS ORDERED: Furosemide 40 MG/4 ML VIAL IVPUSH SCH (10:45)
--- NOTE | 2017-02-22 10:52 | PCM.HP ---
H&P History of Present Illness - General Admit Problem/Dx: Admission Diagnosis/Problem Admission Diagnosis/Problem Dyspnea - History of Present Illness Initial Comments - Free Text/Narative: 81 yo male with pmh of hypertension, hypothyroidism, frequent PVCs, atrial fibrillation,CAD, insomnia, lung cancer s/p lobectomy, colon cancer, and COPD. Patient's last PFTs showed reduce FVC and was not indicative of obstructive disease. Echocardiogram last April reported LVEF of 55%. He presents with two day history of shortness of breath and dry cough. He denies any fever, lightheadedness, or chest pain. CXR reported ill-defined airspace opacities in the right apex without interval change. Small left pleural effusion. Headache Pain Score (Numeric/FACES): 5 - Related Data Allergies/Adverse Reactions: Allergies Allergy/AdvReac Type Severity Reaction Status Date / Time No Known Allergies Allergy Verified 02/21/17 22:14 Home Medications: Home Meds Albuterol [Ventolin HFA] 1 - 2 puff INH ASDIRECTED PRN 07/27/16 [History] Levothyroxine [Synthroid] 50 mcg PO DAILY 07/27/16 [History] Metoprolol Succinate [Toprol XL] 50 mg PO DAILY 07/27/16 [History] LORazepam 1 - 2 tab PO DAILY 02/21/17 [History] PARoxetine [Paxil] 10 mg PO DAILY 02/21/17 [History] Umeclidinium Brm/Vilanterol Tr [Anoro Ellipta 62.5-25 MCG] 1 puff INH DAILY 09/04 [History] Escitalopram [Lexapro] 1 tab PO DAILY 02/23/17 [History] Furosemide [Lasix] 20 mg PO DAILY #2 tablet 02/23/17 [Rx] Losartan Potassium 1 tab PO DAILY 02/23/17 [History] Past Medical History HEENT History: Reports: Hard of Hearing Cardiovascular History: Reports: Afib, CAD, High Cholesterol, Hypertension Other Cardiovascular History: recent cardiac consultation in [place]. and pt. agreed there have been no changes Respiratory History: Reports: Asthma, Other (See Below) Other Respiratory History: seasonal asthma Gastrointestinal History: Reports: Other (See Below) Other Gastrointestinal History: occasional heartburn, hx colon cancer Musculoskeletal History: Reports: Arthritis, Fracture Psychiatric History: Reports: Depression Other Psychiatric History: daughter reports anxiety at home Endocrine/Metabolic History: Reports: Hypothyroidism Hematologic History: Reports: Other (See Below) Other Hematologic History: nose bleeds in the past Oncologic (Cancer) History: Reports: Basal Cell Carcinoma, Colon, Lung, Squamous Cell Carcinoma - Past Surgical History Head Surgeries/Procedures: Reports: None HEENT Surgical History: Reports: Cataract Surgery Cardiovascular Surgical History: Reports: Other (See Below) Respiratory Surgical History: Reports: Thoracotomy Other Respiratory Surgeries/Procedures: LLlobe GI Surgical History: Reports: Colonoscopy, Other (See Below) Musculoskeletal Surgical History: Reports: Other (See Below) Dermatological Surgical History: Reports: Skin Biopsy Social & Family History - Family History Family Medical History: Noncontributory - Tobacco Use Smoking Status *Q: Former Smoker Years of Tobacco use: 10 Packs/Tins Daily: 1 Used Tobacco, but Quit: Yes Month Tobacco Last Used: 06/1969 Second Hand Smoke Exposure: No - Caffeine Use Caffeine Use: Reports: Coffee Caffeine Use Comment: 1-2cups/day - Recreational Drug Use Recreational Drug Use: No Drug Use in Last 12 Months: No H&P Review of Systems - Review of Systems: Review Of Systems: ROS reveals no pertinent complaints other than HPI. Exam - Exam Exam: See Below - Vital Signs Vital Signs: Last Vital Signs Temp 36.6 C 02/22/17 08:12 Pulse 74 02/22/17 08:12 Resp 18 02/22/17 08:12 BP 185/77 H 02/22/17 08:12 Pulse Ox 94 L 02/22/17 08:12 Weight: 71.3 kg - Exam General: Alert, Oriented, 4 HEENT: Mucosa Moist & [place] Neck: Supple Lungs: Clear to Auscultation, Normal Respiratory Effort. No: Crackles, Rales, Rhonchi, Wheezing Cardiovascular: Regular Rate, Regular Rhythm GI/Abdominal Exam: Normal Bowel Sounds, Soft, Non-Tender, No Distention Extremities: Normal Inspection, Normal Range of Motion, Non-Tender, No Pedal Edema Skin: Warm, Dry, Intact Neurological: No: Focal Deficit - Patient Data Lab Results Last 24 hrs: Laboratory Results - last 24 hr 02/22/17 02/22/17 02/22/17 Range/Units 05:42 05:42 05:42 WBC 5.75 (4.0-11.0) K/uL RBC 4.79 (4.50-5.90) M/uL Hgb 15.1 (13.0-17.0) g/dL Hct 42.3 (38.0-50.0) % MCV 88.3 (80.0-98.0) fL MCH 31.5 (27.0-32.0) pg MCHC 35.7 (31.0-37.0) g/dL RDW Std Deviation 40.3 (28.0-62.0) fl RDW Coeff of Yesi 13 (11.0-15.0) % Plt Count 174 (150-400) K/uL MPV 9.00 (7.40-12.00) fL Neut % (Auto) 54.0 (48.0-80.0) % Lymph % (Auto) 28.3 (16.0-40.0) % [place] % (Auto) 14.6 (0.0-15.0) % Eos % (Auto) 2.6 (0.0-7.0) % Baso % (Auto) 0.5 (0.0-1.5) % Neut # (Auto) 3.1 (1.4-5.7) K/uL Lymph # (Auto) 1.6 (0.6-2.4) K/uL [place] # (Auto) 0.8 (0.0-0.8) K/uL Eos # (Auto) 0.2 (0.0-0.7) K/uL Baso # (Auto) 0.0 (0.0-0.1) K/uL Nucleated RBC % 0.0 /100WBC Nucleated RBCs # 0 K/uL Sodium 130 L (136-146) mmol/L Potassium 3.3 L (3.5-5.1) mmol/L Chloride 88 L (98-110) mmol/L Carbon Dioxide 30 (21-31) mmol/L BUN 9 (6.0-23.0) mg/dL Creatinine 0.7 (0.6-1.5) mg/dL Est Cr Clr Drug Dosing 80.64 mL/min Estimated GFR (MDRD) > 60.0 ml/min Glucose 84 (60-110) mg/dL Calcium 9.3 (8.8-10.8) mg/dL Magnesium 1.6 (1.5-2.3) mEq/L Result Diagrams: 02/24/17 04:49 02/24/17 04:49 EKG INTERPRETATION Rhythm: NSR Rate (Beats/Min): 73 P-Wave: Present ST-T: Normal *Q Meaningful Use (ADM) - VTE *Q VTE Criteria *Q: - Stroke *Q Stroke Criteria *Q: - AMI *Q AMI Criteria *Q: Problem List Initiated/Reviewed/Updated: Yes Orders Last 24hrs: Active Orders 24 hr Category Date Time Status Antiembolic Devices [RC] PER UNIT ROUTINE Care 02/22/17 10:46 Ordered Oxygen Therapy [RC] PRN Care 02/22/17 10:45 Ordered RT Aerosol Therapy [RC] ASDIRECTED Care 02/21/17 23:51 Active Telemetry Monitoring [Cardiac Monitoring] [RC] Q8H Care 02/21/17 23:05 Active Up ad Candida [RC] ASDIRECTED Care 02/22/17 10:45 Ordered VTE/DVT Education [RC] PER UNIT ROUTINE Care 02/22/17 10:45 Ordered Vital Signs [RC] Q4H Care 02/22/17 10:45 Ordered Heart Healthy Diet [DIET] Diet 02/22/17 Breakfast Active CBC WITH AUTO DIFF [HEME] AM Lab 02/23/17 05:11 Ordered CBC WITH AUTO DIFF [HEME] AM Lab 02/24/17 05:11 Ordered CBC WITH AUTO DIFF [HEME] AM Lab 02/25/17 05:11 Ordered COMPREHENSIVE METABOLIC PN,CMP [CHEM] AM Lab 02/23/17 05:11 Ordered COMPREHENSIVE METABOLIC PN,CMP [CHEM] AM Lab 02/24/17 05:11 Ordered COMPREHENSIVE METABOLIC PN,CMP [CHEM] AM Lab 02/25/17 05:11 Ordered Albuterol/Ipratropium [DuoNeb 3.0-0.5 MG/3 ML] Med 02/21/17 23:50 Active 3 ml NEB Q4HRRT PRN Enoxaparin [Lovenox] Med 02/22/17 10:45 Ordered 40 mg SUBCUT DAILY Furosemide [Lasix] Med 02/22/17 10:45 Ordered 40 mg IVPUSH BID Levothyroxine [Synthroid] Med 02/22/17 10:45 Ordered 50 mcg PO DAILY Losartan [Cozaar] Med 02/22/17 10:45 Ordered 50 mg PO DAILY Metoprolol Succinate [Toprol XL] Med 02/22/17 10:45 Ordered 50 mg PO DAILY PARoxetine [Paxil] Med 02/22/17 10:45 Ordered 10 mg PO DAILY Umeclidinium Brm/Vilanterol Tr Med 02/22/17 10:45 Ordered 1 puff INH DAILY Sequential Compression Device [OM.PC] Per Unit Routine Oth 02/22/17 10:45 Ordered Resuscitation Status Routine Resus Stat 02/22/17 10:45 Ordered Medication Orders Albuterol/Ipratropium (Duoneb 3.0-0.5 Mg/3 Ml) 3 ml NEB Q4HRRT PRN PRN Reason: Shortness of Breath Furosemide (Lasix) 40 mg IVPUSH BID BRO Levothyroxine Sodium (Synthroid) 50 mcg PO DAILY BRO Losartan Potassium (Cozaar) 50 mg PO DAILY BRO Metoprolol Succinate (Toprol Xl) 50 mg PO DAILY BRO Non-Formulary Medication (Umeclidinium Brm/Vilanterol Tr) 1 puff INH DAILY BRO Paroxetine HCl (Paxil) 10 mg PO DAILY BRO Assessment/Plan Comment:: 81 yo male who presents with shortness of breath. Patient received lasix in the ED with some improvement in dyspnea. Will continue lasix today. Echocardiogram ordered.
[2017-02-22] MEDS ORDERED: Potassium Chloride 20 MEQ Tab.ER PO ONE (10:54)
[2017-02-22] MEDS: Levothyroxine 50 MCG Tab PO SCH (11:18)
[2017-02-22] MEDS: Metoprolol Succinate 25 MG Tab.ER PO SCH (11:18)
[2017-02-22] MEDS: Enoxaparin 40 MG/0.4 ML Syringe SUBCUT SCH (11:19)
[2017-02-22] MEDS: Losartan 50 MG Tab PO SCH (11:19)
[2017-02-22] MEDS: Furosemide 40 MG/4 ML VIAL IVPUSH SCH (15:58)
[2017-02-23 05:45] LABS: CHLORIDE,CL 87 mmol/L (98-110); SODIUM,NA 132 mmol/L (136-146)
--- NOTE | 2017-02-23 07:39 | PCM.DCSUM1 ---
Discharge Summary - Discharge Data Discharge Date: 02/23/17 Discharge Disposition: Home, Self-Care 01 Condition: Good - Patient Instructions Diet: Usual Diet as Tolerated Fluid Restriction: 1500 mL Activity: As Tolerated Other/Special Instructions: Daily weights, report any weight gain of one pound in a day or 3 pounds in a week - Discharge Plan Prescriptions/Med Rec: Furosemide [Lasix] 20 mg PO DAILY #2 tablet Home Medications: Home Meds Albuterol [Ventolin HFA] 1 - 2 puff INH BID 07/27/16 [History] Levothyroxine [Synthroid] 50 mcg PO DAILY 07/27/16 [History] Metoprolol Succinate [Toprol XL] 50 mg PO DAILY 07/27/16 [History] LORazepam 0 mg PO DAILY 02/21/17 [History] Losartan Potassium 50 mg PO DAILY 02/21/17 [History] PARoxetine [Paxil] 10 mg PO DAILY 02/21/17 [History] Umeclidinium Brm/Vilanterol Tr [Anoro Ellipta 62.5-25 MCG] 1 puff INH DAILY 09/04 [History] Furosemide [Lasix] 20 mg PO DAILY #2 tablet 02/23/17 [Rx] - Patient Data Vitals - Most Recent: Last Vital Signs Temp 36.2 C 02/23/17 04:00 Pulse 70 02/23/17 04:00 Resp 17 02/23/17 04:00 BP 156/66 H 02/23/17 04:30 Pulse Ox 97 02/23/17 04:00 Weight - Most Recent: 68.8 kg I&O - Last 24 hours: Intake & Output 02/22/17 02/23/17 02/23/17 22:59 06:59 14:59 Intake Total 1080 300 Output Total 1060 975 Balance 20 -675 Lab Results - Last 24 hrs: Laboratory Results - last 24 hr 02/23/17 02/23/17 Range/Units 05:10 05:10 WBC 5.58 (4.0-11.0) K/uL RBC 4.95 (4.50-5.90) M/uL Hgb 15.6 (13.0-17.0) g/dL Hct 43.9 (38.0-50.0) % MCV 88.7 (80.0-98.0) fL MCH 31.5 (27.0-32.0) pg MCHC 35.5 (31.0-37.0) g/dL RDW Std Deviation 40.7 (28.0-62.0) fl RDW Coeff of Yesi 13 (11.0-15.0) % Plt Count 166 (150-400) K/uL MPV 8.80 (7.40-12.00) fL Add Manual Diff YES Neutrophils % (Manual) 68 (48.0-80.0) % Lymphocytes % (Manual) 17 (16.0-40.0) % Monocytes % (Manual) 13 (0.0-15.0) % Eosinophils % (Manual) 2 (0.0-7.0) % Nucleated RBC % 0.0 /100WBC Absolute Seg Neuts 3.8 Lymphocytes # (Manual) 0.9 Monocytes # (Manual) 0.7 Eosinophils # (Manual) 0.1 Nucleated RBCs # 0 K/uL Sodium 132 L (136-146) mmol/L Potassium 4.5 (3.5-5.1) mmol/L Chloride 87 L (98-110) mmol/L Carbon Dioxide 33 H (21-31) mmol/L BUN 15 (6.0-23.0) mg/dL Creatinine 0.8 (0.6-1.5) mg/dL Est Cr Clr Drug Dosing 68.08 mL/min Estimated GFR (MDRD) > 60.0 ml/min Glucose 91 (60-110) mg/dL Calcium 9.5 (8.8-10.8) mg/dL Total Bilirubin 1.6 H (0.1-1.5) mg/dL AST 23 (5-40) IU/L ALT 21 (8-54) IU/L Alkaline Phosphatase 70 (40-150) Total Protein 6.5 (6.0-8.0) g/dL Albumin 4.2 (3.4-4.8) g/dL Globulin 2.3 (2.0-3.5) g/dL Albumin/Globulin Ratio 1.8 (1.3-2.8) Med Orders - Current: Current Medications Albuterol/Ipratropium (Duoneb 3.0-0.5 Mg/3 Ml) 3 ml NEB Q4HRRT PRN PRN Reason: Shortness of Breath Enoxaparin Sodium (Lovenox) 40 mg SUBCUT DAILY [facility] Last Admin: 02/22/17 11:19 Dose: 40 mg Furosemide (Lasix) 40 mg IVPUSH BIDDIURETIC [facility] Last Admin: 02/22/17 15:58 Dose: 40 mg Levothyroxine Sodium (Synthroid) 50 mcg PO DAILY [facility] Last Admin: 02/22/17 11:18 Dose: 50 mcg Losartan Potassium (Cozaar) 50 mg PO DAILY [facility] Last Admin: 02/22/17 11:19 Dose: 50 mg Metoprolol Succinate (Toprol Xl) 50 mg PO DAILY [facility] Last Admin: 02/22/17 11:18 Dose: 50 mg Paroxetine HCl (Paxil) 10 mg PO DAILY [facility] Anoro Ellipta (Inhaler) 1 each INH DAILY [facility] Last Admin: 02/22/17 13:29 Dose: Not Given Discontinued Medications Albuterol/Ipratropium (Duoneb 3.0-0.5 Mg/3 Ml) 3 ml NEB ONETIME ONE Stop: 02/21/17 22:02 Last Admin: 02/21/17 22:14 Dose: 3 ml Furosemide (Lasix) 20 mg IVPUSH ONETIME ONE Stop: 02/21/17 22:56 Last Admin: 02/21/17 23:10 Dose: 20 mg Furosemide (Lasix) 40 mg IVPUSH BID [facility] Last Admin: 02/22/17 11:19 Dose: 40 mg Paroxetine HCl (Paxil) 10 mg PO DAILY [facility] Last Admin: 02/22/17 10:54 Dose: Not Given Potassium Chloride (Klor-Con M20) 40 meq PO ONETIME ONE Stop: 02/22/17 10:55 Last Admin: 02/22/17 11:18 Dose: 40 meq *Q Meaningful Use (DIS) - VTE *Q VTE Criteria *Q: - Stroke *Q Stroke Criteria *Q: - AMI *Q AMI Criteria *Q:
[2017-02-23] MEDS: Furosemide 40 MG/4 ML VIAL IVPUSH SCH ×3 (08:07→08:41)
[2017-02-23] MEDS ORDERED: Magnesium Sulfate/Water 2 GM in Premix Bag 1 BAG IV ONE (08:34)
--- NOTE | 2017-02-23 08:36 | PCM.PN ---
- Review of Systems Systems Review Comment:: patient is requesting to stay, reports shortness of breath is improving but as has been hospitalized does not have support at home. - Patient Data Vitals - Most Recent: Last Vital Signs Temp 35.7 C 02/23/17 08:16 Pulse 69 02/23/17 08:16 Resp 18 02/23/17 08:16 BP 154/70 H 02/23/17 08:16 Pulse Ox 98 02/23/17 08:16 Weight - Most Recent: 68.8 kg I&O - Last 24 Hours: Intake & Output 02/22/17 02/23/17 02/23/17 22:59 06:59 14:59 Intake Total 1080 300 Output Total 1060 975 Balance 20 -675 Lab Results Last 24 Hours: Laboratory Results - last 24 hr 02/23/17 02/23/17 02/23/17 Range/Units 05:10 05:10 05:10 WBC 5.58 (4.0-11.0) K/uL RBC 4.95 (4.50-5.90) M/uL Hgb 15.6 (13.0-17.0) g/dL Hct 43.9 (38.0-50.0) % MCV 88.7 (80.0-98.0) fL MCH 31.5 (27.0-32.0) pg MCHC 35.5 (31.0-37.0) g/dL RDW Std Deviation 40.7 (28.0-62.0) fl RDW Coeff of Yesi 13 (11.0-15.0) % Plt Count 166 (150-400) K/uL MPV 8.80 (7.40-12.00) fL Add Manual Diff YES Neutrophils % (Manual) 68 (48.0-80.0) % Lymphocytes % (Manual) 17 (16.0-40.0) % Monocytes % (Manual) 13 (0.0-15.0) % Eosinophils % (Manual) 2 (0.0-7.0) % Nucleated RBC % 0.0 /100WBC Absolute Seg Neuts 3.8 Lymphocytes # (Manual) 0.9 Monocytes # (Manual) 0.7 Eosinophils # (Manual) 0.1 Nucleated RBCs # 0 K/uL Sodium 132 L (136-146) mmol/L Potassium 4.5 (3.5-5.1) mmol/L Chloride 87 L (98-110) mmol/L Carbon Dioxide 33 H (21-31) mmol/L BUN 15 (6.0-23.0) mg/dL Creatinine 0.8 (0.6-1.5) mg/dL Est Cr Clr Drug Dosing 68.08 mL/min Estimated GFR (MDRD) > 60.0 ml/min Glucose 91 (60-110) mg/dL Calcium 9.5 (8.8-10.8) mg/dL Magnesium 1.8 (1.5-2.3) mEq/L Total Bilirubin 1.6 H (0.1-1.5) mg/dL AST 23 (5-40) IU/L ALT 21 (8-54) IU/L Alkaline Phosphatase 70 (40-150) Total Protein 6.5 (6.0-8.0) g/dL Albumin 4.2 (3.4-4.8) g/dL Globulin 2.3 (2.0-3.5) g/dL Albumin/Globulin Ratio 1.8 (1.3-2.8) Med Orders - Current: Current Medications Albuterol/Ipratropium (Duoneb 3.0-0.5 Mg/3 Ml) 3 ml NEB Q4HRRT PRN PRN Reason: Shortness of Breath Enoxaparin Sodium (Lovenox) 40 mg SUBCUT DAILY [facility] Last Admin: 02/22/17 11:19 Dose: 40 mg Furosemide (Lasix) 40 mg IVPUSH BIDDIURETIC [facility] Last Admin: 02/23/17 08:07 Dose: Not Given Levothyroxine Sodium (Synthroid) 50 mcg PO DAILY [facility] Last Admin: 02/22/17 11:18 Dose: 50 mcg Losartan Potassium (Cozaar) 50 mg PO DAILY [facility] Last Admin: 02/22/17 11:19 Dose: 50 mg Metoprolol Succinate (Toprol Xl) 50 mg PO DAILY [facility] Last Admin: 02/22/17 11:18 Dose: 50 mg Paroxetine HCl (Paxil) 10 mg PO DAILY [facility] Anoro Ellipta (Inhaler) 1 each INH DAILY [facility] Last Admin: 02/22/17 13:29 Dose: Not Given Discontinued Medications Albuterol/Ipratropium (Duoneb 3.0-0.5 Mg/3 Ml) 3 ml NEB ONETIME ONE Stop: 02/21/17 22:02 Last Admin: 02/21/17 22:14 Dose: 3 ml Furosemide (Lasix) 20 mg IVPUSH ONETIME ONE Stop: 02/21/17 22:56 Last Admin: 02/21/17 23:10 Dose: 20 mg Furosemide (Lasix) 40 mg IVPUSH BID [facility] Last Admin: 02/22/17 11:19 Dose: 40 mg Paroxetine HCl (Paxil) 10 mg PO DAILY [facility] Last Admin: 02/22/17 10:54 Dose: Not Given Potassium Chloride (Klor-Con M20) 40 meq PO ONETIME ONE Stop: 02/22/17 10:55 Last Admin: 02/22/17 11:18 Dose: 40 meq - Exam General: Alert, Oriented Lungs: Clear to Auscultation, Normal Respiratory Effort, Decreased Breath Sounds , Other (pursed lip breathing) Cardiovascular: Regular Rate, Regular Rhythm Extremities: Normal Inspection, Non-Tender, No Pedal Edema Skin: Warm, Dry, Intact Neurological: No New Focal Deficit - Problem List Review Problem List Initiated/Reviewed/Updated: Yes - My Orders Last 24 Hours: My Active Orders 02/22/17 10:45 Oxygen Therapy [RC] PRN Up ad Candida [RC] ASDIRECTED VTE/DVT Education [RC] PER UNIT ROUTINE Vital Signs [RC] Q4H Enoxaparin [Lovenox] 40 mg SUBCUT DAILY Levothyroxine [Synthroid] 50 mcg PO DAILY Losartan [Cozaar] 50 mg PO DAILY Metoprolol Succinate [Toprol XL] 50 mg PO DAILY Patient's Own Medication [Ptom] 1 each INH DAILY Sequential Compression Device [OM.PC] Per Unit Routine Resuscitation Status Routine 02/22/17 10:46 Antiembolic Devices [RC] PER UNIT ROUTINE 02/22/17 10:57 Echo Comp wo Cont [US] Routine 02/22/17 16:00 Furosemide [Lasix] 40 mg IVPUSH BIDDIURETIC 02/23/17 07:34 Ready for Discharge [RC] PER UNIT ROUTINE 02/23/17 08:30 Admission Status [Patient Status] [ADT] Routine Cardiac Monitoring [RC] . DIRECTED 02/23/17 09:00 PARoxetine [Paxil] 10 mg PO DAILY 02/24/17 05:11 CBC WITH AUTO DIFF [HEME] AM COMPREHENSIVE METABOLIC PN,CMP [CHEM] AM 02/25/17 05:11 CBC WITH AUTO DIFF [HEME] AM COMPREHENSIVE METABOLIC PN,CMP [CHEM] AM - Plan Plan:: 81 yo male who presents with shortness of breath. will continue lasix
[2017-02-23] MEDS ORDERED: Acetaminophen 325 MG Tab PO PRN (09:31)
[2017-02-23] MEDS: Levothyroxine 50 MCG Tab PO SCH (10:03)
[2017-02-23] MEDS: Metoprolol Succinate 25 MG Tab.ER PO SCH (10:04)
[2017-02-23] MEDS: Losartan 50 MG Tab PO SCH (10:08)
[2017-02-23] MEDS: PARoxetine 20 MG Tab PO SCH (10:09)
[2017-02-23] MEDS: Enoxaparin 40 MG/0.4 ML Syringe SUBCUT SCH (10:27)
--- NOTE | 2017-02-23 17:55 | CR ---
EXAM DATE: 02/23/17 PATIENT'S AGE: 81 Patient: CAMPOS ANSARI Facility: [place], [place] Site . Site : [id number] Study: XRay Chest [id number]/3/2017 10:37:08 PM Ordering Physician: Chika Mancini Final Report: INDICATION: Shortness of breath TECHNIQUE: Chest radiograph one-view COMPARISON: 02/02/2017. FINDINGS: Cardiovascular and mediastinum: The heart silhouette is normal in size and morphology. The mediastinum is normal in appearance. Lungs and pleural spaces: Ill-defined airspace opacities in the right apex are noted without interval change. Small left pleural effusion present without interval change. No pneumothorax is identified. Bones and soft tissues: No significant findings. IMPRESSION: 1. Ill-defined airspace opacities in the right apex are noted without interval change. 2. Small left pleural effusion present without interval change. Dictated by Klaus Perez MD @ 02/21/2017 10:48:11 PM Dictated by: Klaus Perez MD @ 02/21/2017 22:48:13 (Electronic Signature) Report Signed by Proxy. [facility] HOSPITALPiper
[2017-02-24 05:33] LABS: CHLORIDE,CL 85 mmol/L (98-110); SODIUM,NA 129 mmol/L (136-146)
[2017-02-24 09:55] VITALS: BP 118/56
[2017-02-24] MEDS: Levothyroxine 50 MCG Tab PO SCH (10:00)
[2017-02-24] MEDS: Metoprolol Succinate 25 MG Tab.ER PO SCH (10:00)
[2017-02-24] MEDS: PARoxetine 20 MG Tab PO SCH (10:00)
[2017-02-24] MEDS: Losartan 50 MG Tab PO SCH (10:01)
[2017-02-24] MEDS: Furosemide 40 MG/4 ML VIAL IVPUSH SCH (10:02)
--- NOTE | 2017-02-25 18:26 | ECHO ---
The echocardiogram report can be seen in this patient's EMR (electronic medical records) in the Reports section. The report has also been scanned into PACS and can be seen there. ERIC
== END 2017-02-24 10:50 | disposition home or self-care (01) | DRG 204 ==
LOC: MW.ED 21:54 → MW.MS 22:56 → OBSVTOIN 02-23 08:30
PROVIDERS: ADMIT Internal Medicine; ATTEND Internal Medicine
DX: R06.00 Dyspnea, unspecified (principal); J44.9 Chronic obstructive pulmonary disease, unspecified; E87.1 Hypo-osmolality and hyponatremia; I50.9 Heart failure, unspecified; I50.30 Unspecified diastolic (congestive) heart failure; I10 Essential (primary) hypertension; E78.00 Pure hypercholesterolemia, unspecified; E03.9 Hypothyroidism, unspecified; I48.91 Unspecified atrial fibrillation; I25.10 Atherosclerotic heart disease of native coronary artery without angina pectoris; G47.00 Insomnia, unspecified; Z85.118 Personal history of other malignant neoplasm of bronchus and lung; Z85.038 Personal history of other malignant neoplasm of large intestine; Z79.899 Other long term (current) drug therapy; F32.9 Major depressive disorder, single episode, unspecified; Z80.1 Family history of malignant neoplasm of trachea, bronchus and lung; Z87.891 Personal history of nicotine dependence
CPT/HCPCS: 36415 ×2; 71010; 80048; 80053 ×2; 82553; 83735 ×2; 83880; 84484; 85025 ×3; 93005; 93306; 96372; 96376; 99285; A9270 ×5; G0378 ×2; J1650; J1940 ×2; 81001; 85379; 94640; 96374; 99283; J3475